=== PATIENT | female | born 1995 | race Two or more races ===

== ENCOUNTER 2020-01-17 23:23 | Emergency (ER) | payer OTHER ==
[~2020-01-17] VITALS: Ht 157.5 cm; Wt 40.8 kg
[2020-01-18] MEDS ORDERED: PEPCID40 MG PO (08:15)
[2020-01-18] MEDS ORDERED: ZOFRAN4 MG PO (08:15)
== END 2020-01-18 08:29 ==
LOC: ER 23:23
DX: K29.70 Gastritis, unspecified, without bleeding (principal)